=== PATIENT | female | born 2000 | race Caucasian/White ===

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

== ENCOUNTER 2025-05-02 17:10 | Emergency (ER) | payer SELFPAY ==
[~2025-05-02] VITALS: Ht 152.4 cm; Wt 62.6 kg
[2025-05-02] MEDS: 0.9%NACL 1000ML 1,000 ML IV ONE (17:45)
[2025-05-02 17:47] LABS: IMMATURE GRANULOCYTE ABSOLUTE 0.03 K/uL (0-1); NUCLEATED RED BLOOD CELLS 0.0 % (0.0-0.19); PLATELET COUNT (AUTO) 256 K/uL (130-400); RED BLOOD CELL COUNT(AUTO) 4.26 MIL/uL (4.00-5.50); RED CELL DISTRIBUTION WIDTH 13.3 % (11.0-15.5); WHITE BLOOD COUNT (AUTO) 10.3 K/uL (4.8-10.8)
[2025-05-02] MEDS: leveTIRACEtam 500 MG/5 ML SD V 1,000 MG in 0.9%NACL 100ML 100 ML IV ONE (17:52)
[2025-05-02 18:03] LABS: CREATININE 1.0 mg/dL (0.5-1.0); GLOMERULAR FILTR. RATE CALC 81.0 mL/min (>90); GLUCOSE,RANDOM 113.0 mg/dL (70-105); SODIUM SERUM 141.0 mmol/L (136-145); UREA NITROGEN, BLOOD 10.0 mg/dL (7-18)
--- NOTE | 2025-05-02 18:10 | NUR ---
UPON ARRIVAL PATIENT EXPERIENCED A 30 SECOND TONIC CLONIC SEIZURE, SHE DID NOT HAVE LOC, SEIZURE PRECAUTIONS INITIATED, PATIENT RESTING IN BED, CALL LIGHT IN REACH
[2025-05-02 18:12] LABS: CREATINE KINASE, TOTAL 77.0 U/L (21-232)
--- NOTE | 2025-05-02 18:13 | HMCIMG ---
EXAM: CR Chest, 1 View. CLINICAL HISTORY: sob COMPARISON: None provided. FINDINGS: LUNGS: The lungs show no infiltrate or other acute finding. PLEURAL SPACES: No pleural effusion or pneumothorax. MEDIASTINUM: Cardiac size and mediastinal contours within normal limits. BONES: No aggressive appearing osseous lesion seen. IMPRESSION: No acute cardiopulmonary pathology is evident. /[place]
[2025-05-02 18:57] LABS: APPEARANCE,URINE CLOUDY (CLEAR); GLUCOSE, URINE (UA) NEGATIVE (NEGATIVE); LEUKOCYTE ESTERASE ,URINE 250 Leu/uL (NEGATIVE); NITRATE,URINE NEGATIVE (NEGATIVE); OCCULT BLOOD,URINE NEGATIVE (NEGATIVE)
[2025-05-02 18:59] LABS: ADD UA MICROSCOPIC YES
[2025-05-02 19:01] LABS: SQUAMOUS EPITHELIAL CELL,UR FEW /HPF (0-2)
[2025-05-02 19:04] LABS: AMPHET/METH SCREEN,URINE NEGATIVE (NEGATIVE); BARBITURATE SCREEN, URINE NEGATIVE (NEGATIVE); CANNABINOID SCREEN,URINE POSITIVE (NEGATIVE); COCAINE SCREEN,URINE NEGATIVE (NEGATIVE)
--- NOTE | 2025-05-02 19:53 | NUR ---
AFTER COMPLETION OF CT EXAM, PT NOTED TO HAVE FULL BODY "SEIZURE LIKE" ACTIVITY LASTING LESS THAN 30 SECONDS, THROUGHOUT THE ENTIRE EPISODE PT WAS ABLE TO FOLLOW COMMANDS, NO LOC, NO LOSS OF BOWEL OR BLADDER CONTROL, VSS, RESP EVEN AND UNLABORED ON RA, NO POST ICTAL PHASE AFTER EPISODE, PT RESTING IN BED A&OX4, GCS 15. DILIP DAS MADE AWARE OF EPISODE.
--- NOTE | 2025-05-02 20:01 | HMCIMG ---
EXAM: CT Head Without Intravenous Contrast. CLINICAL HISTORY: 24-year-old female with seizures. TECHNIQUE: Axial computed tomography images of the head/brain without intravenous contrast. Dose reduction technique was used including one or more of the following: automated exposure control, adjustment of mA and kV according to patient size, and/or iterative reconstruction. CONTRAST: None. COMPARISON: None. FINDINGS: BRAIN: No acute intraparenchymal hemorrhage. No mass lesion. No CT evidence for acute territorial infarct. No midline shift or extra-axial collection. VENTRICLES: No hydrocephalus. ORBITS: The orbits are unremarkable. SINUSES AND MASTOIDS: The paranasal sinuses and mastoid air cells are clear. SOFT TISSUES: No significant facial or scalp soft tissue swelling evident. No radiopaque foreign body is seen. BONES: No acute skull fracture. LIMITATIONS/ARTIFACTS: Motion artifact limits evaluation although it is negative. IMPRESSION: 1. No acute intracranial abnormality. 2. Motion artifact limits evaluation. /[place]
--- NOTE | 2025-05-02 21:03 | ERN ---
ED Note History of Present Illness Stated Complaint: 5 SEIZURES IN 1 DAY Chief Complaint: Seizure Time Seen by MD: 17:18 Time Seen by Midlevel: 17:18 Dictation: The Patient is a 24-year-old female with past medical history of seizures, asthma who presents to the emergency department with complaints of multiple seizures. Patient's seizures was witnessed by her boyfriend. Reports that they lasted about 20 seconds to a minute. Reports about six episodes. Patient denies any tongue biting but reports an episode of nonbloody vomiting. Patient denies any traumas, denies any recent illness, denies any fevers. Patient r eports she is not on any medications for her seizures currently and reports that she has follow up with a neurologist but isn't able to recall the neurologist name. Allergies: Coded Allergies: No Known Drug Allergies (Unverified Allergy, Unknown, 03/20/19) Past Medical History Past Medical History: Asthma, Seizure Surgical History: Tonsillectomy RN Note Reviewed/Agreed w/PFSH: Yes Review of System Dictation Constitutional: Negative for fever,chills, and weight loss Eyes: Negative for injury, pain,redness, and discharge ENT: Negative for injury,pain or swelling Cardiovascular: Negative for chest pain, palpitations, and edema Respiratory: Negative for shortness of breath, cough, and wheezing, Abdomen/GI: Negative for abdominal pain, nausea, vomiting, diarrhea, and constipation Back: Negative for injury and pain : Negative for injury, bleeding and discharge MS/Extremity: Negative for injury and deformity Skin: Negative for rash, and discoloration Neuro: Negative for headache, weakness, numbness, tingling, positive for seizures Psych: Negative for suicide ideation, homicidal ideation, and hallucinations Initial Vital Sign VS Vital Signs Date Time Temp Pulse Resp B/P (MAP) Pulse Ox O2 Delivery O2 Flow Rate FiO2 05/02/25 17:12 99.7 118 18 123/83 99 Room Air 05/02/25 18:03 0 21 Physical Exam Dictation Vital Signs reviewed General Appearance: Alert, oriented x 3, no acute distress, well developed, nourished. Head and Face: non-traumatic. Eyes: PERRL, pink conjunctivas, eyelid no trauma, anterior chamber with arcus senilis. Ears: Pinnas intact and no signs of trauma or erythema ear canals clear and no discharge TM no erythema Nose: No discharge, no bleeding. Oropharynx: Mouth normal, tongue pink. pharynx clear,no erythema, tonsils no exudates, no abscesses noted, mucous membrane moist Neck: Supple, non-tender, no thyromegaly, no masses, no JVD, no bruits Breast:Deferred Chest:No tenderness, no crepitus, no paradoxical movement, no retractions Lungs:Clear, well-ventilated, symmetric, no rales, no wheezing, no rhonchi, no stridor, good breath sounds bilaterally Heart: Regular rate, regular rhythm, no murmur, no gallops Vascular: no peripheral edema, Abdomen: Soft, positive bowel sounds, nondistended, no guarding, nontender, no rebound, no masses no hepatomegaly, no splenomegaly, no Nobles's sign, no hernias. Rectal: Deferred Genital: Deferred Neurological: Normal speech, motor function intact, sensory function intact Musculoskeletal: Neck nontender, full range of motion, back nontender, full range of motion, Extremities: nontender, full range of motion Skin: Color pink, dry, no turgor, no rash, no lacerations, no abrasions, no contusions. Lymphatic: Deferred Results (Laboratory/Radiology) Laboratory/Radiology Laboratory Tests Test 05/02/25 17:29 05/02/25 17:41 05/02/25 18:42 Whole Blood Glucose 108 MG/DL (70-110) White Blood Count 10.3 K/uL (4.8-10.8) Red Blood Count 4.26 MIL/uL (4.00-5.50) Hemoglobin 12.7 g/dL (12.0-16.0) Hematocrit 38.6 % (36-48) Mean Corpuscular Volume 90.6 fL (79-99) Mean Corpuscular Hemoglobin 29.8 pg (27.0-33.0) Mean Corpuscular Hemoglobin Concent 32.9 g/dL (32.0-36.0) Red Cell Distribution Width 13.3 % (11.0-15.5) Platelet Count 256 K/uL (130-400) Mean Platelet Volume 11.2 fL (7.5-10.5) H Immature Granulocyte % (Auto) 0.3 % (0-1) Neutrophils (%) (Auto) 53.3 % (40.0-77.0) Lymphocytes (%) (Auto) 36.1 % (21.0-51.0) Monocytes (%) (Auto) 7.3 % (3.0-13.0) Eosinophils (%) (Auto) 2.5 % (0.0-8.0) Basophils (%) (Auto) 0.5 % (0.0-5.0) Neutrophils # (Auto) 5.5 K/uL (1.8-7.7) Lymphocytes # (Auto) 3.7 K/uL (1.0-4.8) Monocytes # (Auto) 0.8 K/uL (0.1-1.0) Eosinophils # (Auto) 0.26 K/uL (0.00-0.70) Basophils # (Auto) 0.05 K/uL (0.00-0.20) Absolute Immature Granulocyte (auto 0.03 K/uL (0-1) Nucleated Red Blood Cells 0.0 % (0.0-0.19) Sodium Level 141 mmol/L (136-145) Potassium Level 4.0 mmol/L (3.5-5.1) Chloride Level 107 mmol/L (101-111) Carbon Dioxide Level 23 mmol/L (21-32) Blood Urea Nitrogen 10 mg/dL (7-18) Creatinine 1.0 mg/dL (0.5-1.0) Glomerular Filtration Rate Calc 81 mL/min (>90) Random Glucose 113 mg/dL (70-105) H Lactic Acid Level 1.9 mmol/L (0.8-2.5) Total Calcium 9.0 mg/dL (8.5-10.1) Total Creatine Kinase 77 U/L (21-232) Troponin I High Sensitivity < 4 ng/L (4-50) L Serum Test, Qualitative NEGATIVE (NEGATIVE) Urine Color YELLOW (YELLOW) Urine Appearance CLOUDY (CLEAR) H Urine pH 6.0 (5.0-8.0) Urine Specific [place] 1.020 (1.001-1.031) Urine Protein NEGATIVE mg/dL (NEGATIVE) Urine Glucose (UA) NEGATIVE mg/dL (NEGATIVE) Urine Ketones NEGATIVE mg/dL (NEGATIVE) Urine Occult Blood NEGATIVE (NEGATIVE) Urine Nitrate NEGATIVE (NEGATIVE) Urine Bilirubin NEGATIVE mg/dL (NEGATIVE) Urine Urobilinogen 0.2 mg/dL (0.2-1.0) Urine Leukocyte Esterase 250 Altaf/uL (NEGATIVE) H Urine RBC 2-5 /HPF (0-1) H Urine WBC 2-5 /HPF (0-1) H Urine Squamous Epithelial Cells FEW /HPF (0-2) Urine Bacteria RARE /HPF (None Seen) Urine Opiates Screen NEGATIVE (NEGATIVE) Urine Barbiturates Screen NEGATIVE (NEGATIVE) Urine Phencyclidine Screen NEGATIVE (NEGATIVE) Urine Amphetamines Screen NEGATIVE (NEGATIVE) Urine Benzodiazepines Screen NEGATIVE (NEGATIVE) Urine Cocaine Screen NEGATIVE (NEGATIVE) Urine Marijuana (THC) Screen POSITIVE (NEGATIVE) H REASON: seizures ORDERING PHYSICIAN: HTIAGO GONZALEZ [employer] PROCEDURE: HEAD WO - CT HEAD/BRAIN W/O CONTRAST EXAM: CT Head Without Intravenous Contrast. CLINICAL HISTORY: 24-year-old female with seizures. TECHNIQUE: Axial computed tomography images of the head/brain without intravenous contrast. Dose reduction technique was used including one or more of the following: automated exposure control, adjustment of mA and kV according to patient size, and/or iterative reconstruction. CONTRAST: None. COMPARISON: None. FINDINGS: BRAIN: No acute intraparenchymal hemorrhage. No mass lesion. No CT evidence for acute territorial infarct. No midline shift or extra-axial collection. VENTRICLES: No hydrocephalus. ORBITS: The orbits are unremarkable. SINUSES AND MASTOIDS: The paranasal sinuses and mastoid air cells are clear. SOFT TISSUES: No significant facial or scalp soft tissue swelling evident. No radiopaque foreign body is seen. BONES: No acute skull fracture. LIMITATIONS/ARTIFACTS: Motion artifact limits evaluation although it is negative. IMPRESSION: 1. No acute intracranial abnormality. 2. Motion artifact limits evaluation. REASON: sob ORDERING PHYSICIAN: THIAGO GONZALEZ [employer] PROCEDURE: CXR1VW - CHEST 1VW EXAM: CR Chest, 1 View. CLINICAL HISTORY: sob COMPARISON: None provided. FINDINGS: LUNGS: The lungs show no infiltrate or other acute finding. PLEURAL SPACES: No pleural effusion or pneumothorax. MEDIASTINUM: Cardiac size and mediastinal contours within normal limits. BONES: No aggressive appearing osseous lesion seen. IMPRESSION: No acute cardiopulmonary pathology is evident. /[place] Labs Reviewed?: Yes EKG: (+) rhythm (Sinus rhythm) EKG Comment: Date:05/02/2025 Time:1723 Ventricular rate:88 OK interval:136 QRS duration:99 QT/QTc:345/418 EKG interpretation: Sinus rhythm Reviewed by ED Attending no STEMI ED Course ED Course Orders Procedure Category Date Status Time Cbc With Differential LAB 05/02/25 Complete 17:23 Troponin I High LAB 05/02/25 Complete Sensitivity 17:23 Urinalysis Profile LAB 05/02/25 Complete 17:23 0.9%Nacl 1000ml (Ns PHA 05/02/25 Complete 1000ml) 17:30 Creatine Kinase, Total LAB 05/02/25 Complete 17:23 Basic Metabolic Panel LAB 05/02/25 Complete 17:23 Testing, LAB 05/02/25 Complete Serum Hcg 17:23 Lactic Acid LAB 05/02/25 Complete 17:23 Chest 1vw RAD 05/02/25 Resulted 17:23 Drug Screen Urine LAB 05/02/25 Complete 17:23 Levetiracetam 500 PHA 05/02/25 Complete Mg/5 Ml Sd V (Keppra 5 17:30 Levetiracetam 500 PHA 05/02/25 Complete Mg/5 Ml Sd V (Keppra 5 18:00 Ct Head/Brain W/O CT 05/02/25 Resulted Contrast 18:09 Diazepam 5 Mg/Ml 2 Ml PHA 05/02/25 Complete Syg (Valium 5 Mg/M 18:30 Culture Urine KEVIN 05/02/25 In Process 18:59 Ceftriaxone 1g Vial PHA 05/02/25 Complete (Rocephine 1g Inj) 21:30 Current Medications Medications (Trade) Dose Ordered Sig/[place] Route PRN Reason Start Time Stop Time Status Last Admin Dose Admin Ceftriaxone Sodium (ROCEphine 1G INJ) 1 gm ONCE ONCE IVPB 05/02/25 21:30 05/02/25 21:31 DC 05/02/25 21:29 Diazepam (VALium 5 MG/ML 2 ML SYG) 5 mg ONCE ONCE IVP 05/02/25 18:30 05/02/25 18:31 DC Levetiracetam (kepPRA 500 MG/5 ML SD VIAL) 1,000 mg ONCE IV 05/02/25 17:30 05/02/25 17:34 DC Levetiracetam 1000 mg/Sodium Chloride 100 ml @ 400 mls/hr ONCE ONCE IV 05/02/25 18:00 05/02/25 18:14 DC 05/02/25 17:52 Sodium Chloride 1,000 ml @ 0 mls/hr ONCE ONCE IV 05/02/25 17:30 05/02/25 17:32 DC 05/02/25 17:45 Vital Signs Date Time Temp Pulse Resp B/P (MAP) Pulse Ox O2 Delivery O2 Flow Rate FiO2 05/02/25 18:03 98.1 69 22 104/67 98 Room Air* 0 21 05/02/25 17:12 99.7 118 18 123/83 99 Room Air Medical Decision Making MDM MDM: The Patient is a 24-year-old female with past medical history of seizures, asthma who presents to the emergency department with complaints of multiple seizures. Patient's seizures was witnessed by her boyfriend. Reports that they lasted about 20 seconds to a minute. Reports about six episodes. Patient denies any tongue biting but reports an episode of nonbloody vomiting. Patient denies any traumas, denies any recent illness, denies any fevers. Patient reports she is not on any medications for her seizures currently and reports that she has follow up with a neurologist but isn't able to recall the neurologist name. CBC showed no leukocytosis, no anemia, chemistry showed no electrolyte imbalance, negative lactic acid, urinalysis positive for leukocyte esterase, positive for marijuana CT head showed no acute pathology, chest x-ray showed no acute pathology. Differential diagnosis: Electrolyte imbalance, intracerebral hemorrhage, seizures, Comorbidities: Seizures Tests considered and not ordered secondary to shared decision making include: none Previous outside records reviewed: none Risk of complication and/or morbidity or mortality of patient management: The patient meets criteria for transfer Need for emergency major/minor surgery: No There are no social concerns with this patient. I independently interpreted the tests I ordered (labs, urinalysis, etc.). I discussed the case with the Dr. Rojas for transfer to [facility] I discussed the case with the following specialists: none. Historian: [email or web address] I independently interpreted imaging studies and EKGs that I ordered (US, CT, XR, EKG, etc.). External chart review: none. Medical management and examination interpretation discussions were had by me with other qualified healthcare professionals as indicated for the patient's care. DX & DISP Disposition: Transfer Decision to Admit Date: May 02, 2025 Departure Impression: Primary Impression: Seizure Condition: Stable Referrals: MAGUI GERMAN (PCP) I have reviewed the case, and I agree with, Diagnosis and Plan THIAGO GONZALEZ [facility] May 02, 2025 21:03
--- NOTE | 2025-05-02 22:02 | NUR ---
TRANSFER CALL PLACED TO [facility] [employer] MANAGER TO INITIATE TRANSFER FOR NEUROLOGY SERVICES
--- NOTE | 2025-05-02 23:23 | NUR ---
TRANSFER PT. WAS ACCEPTED @ [id number] BY KO WINCHESTER MD FOR TRANSFER TO [facility]. ROOM ASSIGNMENT AT THIS TIME:[id number]. REPORT: [phone]
--- NOTE | 2025-05-02 23:51 | NUR ---
[facility] CALLED FOR TRANSPORT OF MONITORED NEUROLOGY PATIENT
--- NOTE | 2025-05-03 01:45 | NUR ---
REPORT CALLED TO [facility] [place] RM 144 NURSE MARCIA CERNA. ALL QUESTIONS ANSWERED AT THIS TIME. [facility] AT BEDSIDE FOR TRANSFER.
--- NOTE | 2025-05-03 01:48 | NUR ---
PER [facility], THEY WILL RETURN TO ER FOR TRANSFER OF ROOM [address] [facility].
[2025-05-03 02:45] VITALS: BP 98/58; PULSE 56; RESP 17; TEMP 98.1; O2SAT 97
--- NOTE | 2025-05-03 02:47 | NUR ---
[facility] AT BEDSIDE ONCE AGAIN, REPORT GIVEN TO [facility], PT DEPARTED AT THIS TIME
--- NOTE | 2025-05-03 14:00 | EKG ---
[facility] Test Date: 2025-05-02 Test Time: 17:23:30 Pat Name: JAYCEE GONZALES Department: [facility] Room: Gender: F [employer]: [id number] : 2000 Requested By: THIAGO GONZALEZ Order Number: [id number] Reading MD: Turner Barrera Measurements Intervals [place] Rate: 88 P: 41 AR: 136 QRS: 36 QRSD: 99 T: 31 QT: 345 QTc: 418 Interpretive Statements Sinus rhythm Compared to ECG 02/25/2017 18:55:53 Sinus tachycardia no longer present Electronically Signed On 05-03-2025 21:30:42 CDT by Turner Barrera Please click the below link to view image of tracing.
== END 2025-05-03 02:54 | disposition short-term general hospital (02) ==
LOC: EDH 17:10
DX: R56.9 Unspecified convulsions (principal); J45.909 Unspecified asthma, uncomplicated; Z90.89 Acquired absence of other organs
CPT/HCPCS: 99285; 96365; 70450; 71045; 96367; 82550; 84484; 80048; 80305; 84703; 85025; 87086; 82948; 83605; 36415; 93005; 81001; J1953; J7030; J0696; J3360